=== PATIENT | female | born 1990 | race Two or more races ===

== ENCOUNTER → 2023-01-08 | Outpatient (CLI) | payer OTHER | END | disposition home or self-care (01) | LOC: SONOGRAMA 11:49 | PROVIDERS: ATTEND Pathology Anatomic Pathology & Clinical Pathology | DX: D44.0 Neoplasm of uncertain behavior of thyroid gland (principal); E07.9 Disorder of thyroid, unspecified; C73 Malignant neoplasm of thyroid gland ==

== ENCOUNTER 2023-02-02 09:49 | Outpatient (CLI) | payer OTHER | END 2023-02-02 09:52 | disposition home or self-care (01) | LOC: SONOGRAMA 09:49 | PROVIDERS: ATTEND Pathology Anatomic Pathology & Clinical Pathology | DX: D44.0 Neoplasm of uncertain behavior of thyroid gland (principal); E04.1 Nontoxic single thyroid nodule ==